=== PATIENT | male | born 2000 | race Caucasian/White ===

== ENCOUNTER 2024-11-15 11:56 | Emergency (ER) | payer SELFPAY ==
[2024-11-15 12:56] LABS: APPEARANCE,URINE CLEAR; BILIRUBIN,URINE NEGATIVE (NEGATIVE); COLOR,URINE YELLOW; GLUCOSE,URINE NEGATIVE (NEGATIVE); KETONES,URINE NEGATIVE (NEGATIVE); LEUKOCYTE ESTERASE,URINE NEGATIVE (NEGATIVE); NITRITE,URINE NEGATIVE (NEGATIVE); OCCULT BLOOD,URINE NEGATIVE (NEGATIVE); PROTEIN,URINE NEGATIVE (NEGATIVE); UROBILINOGEN,URINE 0.2 EU/dL (<2.0)
[2024-11-15 13:13] LABS: BASOPHILS ABSOLUTE AUTO 0.06 K/uL (0.00-0.20); BASOPHILS PERCENT AUTO 0.9 % (0.0-1.0); EOSINOPHILS ABSOLUTE AUTO 0.07 K/uL (0.00-0.45); HEMATOCRIT 43.8 % (42.0-52.0); HEMOGLOBIN 14.9 g/dL (14.0-18.0); IMMATURE GRAN ABSOLUTE AUTO 0.01 K/uL (0.00-0.05); IMMATURE GRAN PERCENT AUTO 0.1 % (0.0-0.4); LYMPHOCYTES ABSOLUTE AUTO 1.73 K/uL (1.00-4.80); LYMPHOCYTES PERCENT AUTO 25.6 % (24.0-44.0); MEAN CORPUSCULAR HEMOGLOBIN 28.3 pg (28.0-32.0); MEAN CORPUSCULAR VOLUME 83.1 fL (83.0-99.0); MEAN PLATELET VOLUME 8.8 fL (9.4-12.4); MONOCYTES ABSOLUTE AUTO 0.51 K/uL (0.00-0.80); MONOCYTES PERCENT AUTO 7.5 % (0.0-8.0); NEUTROPHILS ABSOLUTE AUTO 4.39 K/uL (1.80-7.70); NEUTROPHILS PERCENT AUTO 64.9 % (41.0-71.0); PLATELET COUNT,PLT 314 K/uL (150-400); RED BLOOD CELL COUNT 5.27 M/uL (4.52-5.90); WHITE BLOOD CELL COUNT,WBC 6.77 K/uL (3.9-11.3)
[2024-11-15 13:39] LABS: A/G RATIO 1.4 (0.9-1.6); ALBUMIN 4.6 g/dL (3.4-5.0); BILIRUBIN TOTAL 0.3 mg/dL (0.2-1.0); CALCIUM 9.2 mg/dL (8.5-10.1); CARBON DIOXIDE,CO2 29.4 mmol/L (21.0-32.0); EST CRCL DRUG DOSING (CG) 90.56 mL/min; POTASSIUM,K 3.9 mmol/L (3.5-5.1)
== END 2024-11-15 15:15 | disposition home or self-care (01) ==
LOC: MW.ED 11:56
DX: N50.811 Right testicular pain (principal); X58.XXXA Exposure to other specified factors, initial encounter
CPT/HCPCS: 36415; 76870; 76870-26; 80053; 81003; 83690; 84484; 85025; 93976; 93976-26; 99283; 99284